=== PATIENT | male | born 1970 | race Two or more races ===

== ENCOUNTER 2024-03-05 08:04 | Emergency (ER) | payer OTHER ==
[~2024-03-05] VITALS: Ht 185.4 cm; Wt 86.2 kg
[2024-03-05] MEDS ORDERED: LIDOCAINE 1%-EPI 1:100,000 20 ML VIAL ONE (08:16)
[2024-03-05 08:19] VITALS: BP 136/100; TEMP 97.8; O2SAT 100
== END 2024-03-05 09:18 | disposition home or self-care (01) ==
LOC: ER 08:19
DX: S61.304A Unspecified open wound of right ring finger with damage to nail, initial encounter (principal); W45.8XXA Other foreign body or object entering through skin, initial encounter; Y93.9 Activity, unspecified; Y92.9 Unspecified place or not applicable; Y99.9 Unspecified external cause status
CPT/HCPCS: 99282; J3490